=== PATIENT | male | born 1990 | race Caucasian/White ===

== ENCOUNTER 2020-08-07 12:40 | Outpatient (REF) | payer OTHER, SELFPAY | END 2020-08-07 12:41 | disposition home or self-care (01) | LOC: HO.HMGCLDS 12:40 | PROVIDERS: PCP Nurse Practitioner Family; Visit Provider Internal Medicine | DX: Z20.828 Contact with and (suspected) exposure to other viral communicable diseases (principal) | CPT/HCPCS: 36415; 87635 ==

== ENCOUNTER 2021-08-04 08:28 | Outpatient (REF) | payer OTHER, SELFPAY ==
--- NOTE | ~2021-08-04 | XR_ITS ---
EXAMINATION: XR LUMBOSACRAL SPINE CLINICAL INFORMATION: Lower back pain. COMPARISON: None TECHNIQUE: AP and lateral views of the lumbar spine and lateral view of the lumbosacral junction. FINDINGS: Vertebral body heights are normal. There is a slight lumbar levoscoliosis. The disc spaces are well-maintained. No acute fracture or spondylolisthesis seen. The posterior elements are intact. The paravertebral soft tissues are unremarkable. XR/XR lumbar spine 2-3V IMPRESSION: 1. There is a slight lumbar levoscoliosis. 2. No acute fracture or spondylolisthesis is seen. 3. The disc spaces are well-maintained.
== END 2021-08-04 08:29 | disposition home or self-care (01) ==
LOC: HO.HMGCX 08:28
PROVIDERS: PCP Nurse Practitioner Family; Visit Provider Nurse Practitioner Family
DX: M54.5 Low back pain (principal)
CPT/HCPCS: 72100

== ENCOUNTER 2021-08-23 08:19 | Outpatient (REF) | payer OTHER, SELFPAY ==
[2021-08-23 12:00] LABS: Alanine Aminotransferase 39 U/L (0-40); Albumin Level 4.2 g/dL (3.5-5.0); Alkaline Phosphatase 93 U/L (39-117); Anion Gap 13 (12-20); Aspartate Amino Transferase 19 U/L (5-37); Bilirubin Total 1.1 mg/dL (0.0-1.0); Blood Urea Nitrogen 11 mg/dL (9-16); Calcium 9.4 mg/dL (8.4-10.2); Carbon Dioxide 26 mmol/L (22-29); Chloride 106 mmol/L (96-108); Estimated Glomerular Filt Rate > 60; Glucose Random 98 mg/dL (60-115); Sodium 141 mmol/L (135-145); Total Protein 7.2 g/dL (6.5-8.0)
== END 2021-08-23 08:20 | disposition home or self-care (01) ==
LOC: HO.HMGCLDS 08:19
PROVIDERS: PCP Nurse Practitioner Family; Visit Provider Nurse Practitioner Family
DX: I10 Essential (primary) hypertension (principal)
CPT/HCPCS: 36415; 80053

== ENCOUNTER 2022-03-01 10:50 | Outpatient (RCR) | payer OTHER, SELFPAY ==
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
== END 2022-03-28 14:51 | disposition home or self-care (01) ==
LOC: HO.PTCHIC 10:50
PROVIDERS: PCP Nurse Practitioner Family; Visit Provider Nurse Practitioner Family
DX: M54.50 Low back pain, unspecified (principal); M50.90 Cervical disc disorder, unspecified, unspecified cervical region; S13.4XXD Sprain of ligaments of cervical spine, subsequent encounter; V89.2XXD Person injured in unspecified motor-vehicle accident, traffic, subsequent encounter
CPT/HCPCS: 97110; 97161

== ENCOUNTER 2022-03-17 09:06 | Outpatient (REF) | payer OTHER, SELFPAY ==
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
[2022-03-17 11:37] LABS: Appearance Urine CLEAR; Color Urine YELLOW; Glucose Urine UA NEG (NEG); Leukocyte Esterase Urine NEG (NEG); Nitrite Urine NEG (NEG); PH 6.5 (5.0-8.0); UACC Culture Trigger NO; Urine Blood 1+ (NEG); Urine Ketones NEG (NEG); Urine Protein NEG (NEG-TRACE)
[2022-03-17 12:24] LABS: TSH reflex Free T4 1.27 uIU/mL (0.32-4.0)
[2022-03-17 12:30] LABS: Alanine Aminotransferase 45 U/L (0-40); Albumin Level 4.2 g/dL (3.5-5.0); Alkaline Phosphatase 85 U/L (39-117); Anion Gap 12 (12-20); Aspartate Amino Transferase 22 U/L (5-37); Bilirubin Total 1.2 mg/dL (0.0-1.0); Blood Urea Nitrogen 11 mg/dL (9-16); Calcium 9.6 mg/dL (8.4-10.2); Carbon Dioxide 28 mmol/L (22-29); Chloride 104 mmol/L (96-108); Cholesterol 165 mg/dL; Estimated Glomerular Filt Rate > 60; Glucose Fasting 96 mg/dL (60-99); HDL Cholesterol 43 mg/dL; LDL Cholesterol Calculated 100 mg/dl; Potassium 4.3 mmol/L (3.3-5.1); Sodium 140 mmol/L (135-145); Total Protein 7.3 g/dL (6.5-8.0); Triglycerides 111 mg/dL
[2022-03-17 13:28] LABS: Squamous Epithelial Cell Urine TRACE /LPF; WBC Urine 0 /HPF (0-4)
[2022-03-17 13:29] LABS: Bacteria Urine TRACE /LPF
== END 2022-03-17 09:07 | disposition home or self-care (01) ==
LOC: HO.HMGCX 09:06
PROVIDERS: PCP Nurse Practitioner Family; Visit Provider Nurse Practitioner Family
DX: Z00.00 Encounter for general adult medical examination without abnormal findings (principal); M54.50 Low back pain, unspecified; M50.90 Cervical disc disorder, unspecified, unspecified cervical region; R31.29 Other microscopic hematuria; S13.4XXA Sprain of ligaments of cervical spine, initial encounter; V89.2XXA Person injured in unspecified motor-vehicle accident, traffic, initial encounter
CPT/HCPCS: 36415; 72040; 72100; 80053; 80061; 81001; 84443

== ENCOUNTER → 2022-05-11 11:29 | Outpatient (BNVA) | payer OTHER, SELFPAY | PROVIDERS: PCP Nurse Practitioner Family; Visit Provider Dietitian, Registered | DX: E66.01 Morbid (severe) obesity due to excess calories (principal); Z68.41 Body mass index [BMI] 40.0-44.9, adult; Z71.3 Dietary counseling and surveillance | CPT/HCPCS: 97802 ==

== ENCOUNTER → 2022-07-21 10:05 | Outpatient (BNVA) | payer OTHER, SELFPAY | PROVIDERS: PCP Nurse Practitioner Family; Visit Provider Dietitian, Registered | DX: E66.01 Morbid (severe) obesity due to excess calories (principal) | CPT/HCPCS: 97803 ==

== ENCOUNTER → 2022-10-25 09:24 | Outpatient (BNVA) | payer OTHER, SELFPAY | PROVIDERS: PCP Nurse Practitioner Family; Visit Provider Dietitian, Registered | DX: E66.01 Morbid (severe) obesity due to excess calories (principal) | CPT/HCPCS: 97803 ==

== ENCOUNTER 2023-03-09 08:06 | Outpatient (REF) | payer OTHER, SELFPAY ==
[2023-03-09 11:12] LABS: MANUAL DIFF FLAG NO
[2023-03-09 11:26] LABS: Appearance Urine Turbid; Color Urine Yellow; Glucose Urine UA Negative (Negative); Leukocyte Esterase Urine Negative (Negative); Nitrite Urine Negative (Negative); PH 5.5 (5.0-9.0); Specific Gravity - Urine 1.025 (1.005-1.025); UMIC TRIGGER UACC YES; Urine Blood Small (1+) (Negative); Urine Ketones Negative (Negative); Urine Protein Trace mg/dL (Neg-Trace)
[2023-03-09 11:31] LABS: Basophils Percent Auto 0.5 % (0-2); Eosinophils Absolute Auto 0.3 X10*3/uL (0.0-0.4); Eosinophils Percent Auto 3.2 % (0-4); Hemoglobin 15.7 g/dl (14.0-18.0); Imm Gran Abs Auto 0.03 X10*3/uL (0.00-0.03); Imm Gran Pct Auto 0.4 % (0.0-0.4); Lymphocytes Absolute Auto 2.5 X10*3/uL (1.2-4.9); Lymphocytes Percent Auto 31.2 % (20-40); Mean Corpuscular HGB Conc 32.7 g/dl (31.0-36.0); Mean Corpuscular Hemoglobin 27.2 pg (27.0-33.0); Mean Corpuscular Volume 83.2 fL (80.0-98.0); Mean Platelet Volume 11.1 fL (9.4-12.4); Monocytes Absolute Auto 0.7 X10*3/uL (0.1-1.2); Monocytes Percent Auto 8.1 % (2-11); Neutrophils Absolute Auto 4.6 x10*3/uL (2.0-8.3); Neutrophils Percent Auto 56.6 % (45-73); Platelet Count 273 X10*3/uL (160-400); Red Blood Count 5.77 X10*6/uL (4.60-5.80); Red Cell Distribution Width 13.2 % (11.0-16.0); White Blood Count 8.1 X10*3/uL (4.8-10.8)
[2023-03-09 11:43] LABS: Bacteria Urine None Seen (None Seen); Hyaline Casts Urine 0-2 /LPF (0-2); RBC Urine 0-2 /HPF (0-2); Squamous Epithelial Cell Urine 0-2 /HPF (0-2); WBC Urine 0-5 /HPF (0-5)
[2023-03-09 12:41] LABS: Alanine Aminotransferase 46 U/L (0-40); Albumin Level 4.3 g/dL (3.5-5.0); Alkaline Phosphatase 88 U/L (39-117); Anion Gap 13 (12-20); Aspartate Amino Transferase 21 U/L (5-37); Bilirubin Total 1.6 mg/dL (0.0-1.0); Blood Urea Nitrogen 14 mg/dL (9-16); Calcium 9.4 mg/dL (8.4-10.2); Carbon Dioxide 25 mmol/L (22-29); Chloride 106 mmol/L (96-108); Cholesterol 155 mg/dL; Estimated Glomerular Filt Rate > 60; Glucose Fasting 91 mg/dL (60-99); HDL Cholesterol 40 mg/dL; LDL Cholesterol Calculated 94 mg/dl; Potassium 3.9 mmol/L (3.3-5.1); Sodium 140 mmol/L (135-145); Total Protein 7.5 g/dL (6.5-8.0); Triglycerides 106 mg/dL
[2023-03-09 12:48] LABS: TSH reflex Free T4 1.46 uIU/mL (0.32-4.0)
== END 2023-03-09 08:07 | disposition home or self-care (01) ==
LOC: HO.HMGCLDS 08:06
PROVIDERS: PCP Nurse Practitioner Family; Visit Provider Nurse Practitioner Family
DX: I10 Essential (primary) hypertension (principal)
CPT/HCPCS: 36415; 80053; 80061; 81001; 84443; 85025

== ENCOUNTER 2023-03-16 09:02 | Outpatient (REF) | payer OTHER, SELFPAY ==
--- NOTE | ~2023-03-16 | US_ITS ---
EXAMINATION: US ABDOMEN COMPLETE CLINICAL INFORMATION: Elevated liver enzymes. COMPARISON: Renal ultrasound with bladder dated 07/20/2020. CT abdomen and pelvis with intravenous contrast only dated 07/07/2016. TECHNIQUE: Real-time imaging of the abdominal viscera. Technically difficult study secondary to bowel gas and body habitus. FINDINGS: PANCREAS: Not well visualized due to bowel gas. ABDOMINAL AORTA: The proximal, mid, and distal segments are normal in caliber. INFERIOR VENA CAVA: Visualized portions are normal. LIVER: Liver echotexture is increased. The liver is normal in size. The liver contour is normal. No focal hepatic lesion. There is no intrahepatic biliary duct dilatation seen. GALLBLADDER: Normal. The gallbladder is physiologically distended without evidence of stones, sludge, polyps, wall thickening or pericholecystic fluid. COMMON BILE DUCT: Normal in caliber measuring 0.37 cm in diameter. RIGHT KIDNEY: Normal. No hydronephrosis. No renal calculi or focal parenchymal lesions. The kidney measures 13.0 cm in maximum dimension. LEFT KIDNEY: Normal. No hydronephrosis. No renal calculi or focal parenchymal lesions. The kidney measures 13.0 cm in maximum dimension. SPLEEN: Normal. The spleen measures 13.0 cm in maximum dimension. FREE FLUID: None. US/US abdomen complete IMPRESSION: Echogenic liver probably representing fatty infiltration. Limited visualization of the pancreas.
== END 2023-03-16 09:03 | disposition home or self-care (01) ==
LOC: HO.HMGCX 09:02
PROVIDERS: PCP Nurse Practitioner Family; Visit Provider Nurse Practitioner Family
DX: R74.8 Abnormal levels of other serum enzymes (principal)
CPT/HCPCS: 76700

== ENCOUNTER 2024-01-08 08:55 | Emergency (ER) | payer OTHER, SELFPAY ==
--- NOTE | ~2024-01-08 | CT_ITS ---
EXAMINATION: CT ABDOMEN AND PELVIS WITH CONTRAST CLINICAL INFORMATION: Right lower quadrant/periumbilical pain. COMPARISON: Abdominal ultrasound 03/16/2023 CT abdomen/pelvis 10/06/2016 TECHNIQUE: Multidetector volumetric images were obtained from the superior aspect of the liver through the pubic symphysis following administration 85 mL of Omnipaque 350 intravenous contrast. Sagittal and coronal reformatted images were obtained on the technologist's workstation. Oral contrast: No This CT examination was performed using dose optimization techniques as appropriate, variously including the following: *Automated exposure control *Adjustment of mA and/or kV according to patient size (this includes techniques or standardized protocols for targeted exams where dose is matched to indication/reason for exam; i.e. extremities or head) *Use of iterative reconstruction technique DLP: 1349 mGy-cm FINDINGS: LUNG BASES: The visualized lung bases are unremarkable. LIVER, GALLBLADDER, AND BILIARY TREE: The liver is enlarged and decreased in attenuation. No biliary ductal dilatation is present. The gallbladder is unremarkable with no evidence of radiopaque gallstones, gallbladder wall thickening, or obvious pericholecystic inflammatory changes. PANCREAS: No ductal dilatation. SPLEEN: Not enlarged. ADRENAL GLANDS: No adrenal mass. KIDNEYS AND URETERS: The kidneys are symmetric in size, shape, and attenuation. 7 mm midpole left renal cyst for which no further follow-up is needed. No hydronephrosis. No perinephric stranding. BLADDER: Unremarkable. GASTROINTESTINAL TRACT: Small hiatal hernia. Pericolonic inflammatory change in the left lower quadrant with evidence of underlying diverticulosis. No small bowel obstruction. Appendix is within normal limits. ABDOMINAL WALL: No significant hernia is appreciated. LYMPH NODES: No bulky lymphadenopathy. VASCULAR: Normal caliber abdominal aorta. PELVIC VISCERA: Unremarkable. OSSEOUS STRUCTURES: No destructive bone lesions. CT/CT abdomen pelvis w IV con IMPRESSION: Acute diverticulitis of the sigmoid colon. Follow-up imaging after treatment is advised. Hepatomegaly and hepatic steatosis.
[2024-01-08 09:30] VITALS: BP 127/88; PULSE 72; RESP 19; TEMP 36.6; O2SAT 99; BMI 45.4
[2024-01-08 09:48] LABS: MANUAL DIFF FLAG NO
[2024-01-08 09:51] LABS: Basophils Percent Auto 0.5 % (0-2); Eosinophils Absolute Auto 0.1 X10*3/uL (0.0-0.4); Eosinophils Percent Auto 1.5 % (0-4); Hematocrit 45.7 % (42.0-52.0); Hemoglobin 15.1 g/dl (14.0-18.0); Imm Gran Abs Auto 0.02 X10*3/uL (0.00-0.03); Imm Gran Pct Auto 0.2 % (0.0-0.4); Lymphocytes Absolute Auto 1.9 X10*3/uL (1.2-4.9); Lymphocytes Percent Auto 22.9 % (20-40); Mean Corpuscular Hemoglobin 27.3 pg (27.0-33.0); Mean Corpuscular Volume 82.5 fL (80.0-98.0); Mean Platelet Volume 9.8 fL (9.4-12.4); Monocytes Absolute Auto 0.6 X10*3/uL (0.1-1.2); Monocytes Percent Auto 7.5 % (2-11); Neutrophils Absolute Auto 5.7 x10*3/uL (2.0-8.3); Neutrophils Percent Auto 67.4 % (45-73); Platelet Count 236 X10*3/uL (160-400); Red Blood Count 5.54 X10*6/uL (4.60-5.80); White Blood Count 8.4 X10*3/uL (4.8-10.8)
[2024-01-08 10:07] LABS: Alanine Aminotransferase 36 U/L (0-40); Alkaline Phosphatase 92 U/L (39-117); Anion Gap 7 (12-20); Aspartate Amino Transferase 21 U/L (5-37); Bilirubin Direct 0.4 mg/dL (0.0-0.5); Bilirubin Total 1.2 mg/dL (0.0-1.0); Blood Urea Nitrogen 8 mg/dL (9-16); Calcium 9.2 mg/dL (8.4-10.2); Carbon Dioxide 30 mmol/L (22-29); Chloride 107 mmol/L (96-108); Creatinine Clr Calc Pharmacy 210.7; Estimated Glomerular Filt Rate > 60; Glucose Random 98 mg/dL (60-115); Lipase 40 U/L (8-78); Sodium 140 mmol/L (135-145); Total Protein 7.3 g/dL (6.5-8.0)
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
[2024-01-08 11:08] VITALS: BP 139/88; PULSE 68; RESP 20; O2SAT 99
[2024-01-08] MEDS: 0.9 % Sodium Chloride 1,000 ML 999 ML IV (11:53)
[2024-01-08] MEDS: iohexoL 350 MG/ML 100 ML INFUS..BTL 85 ML IV (12:02)
[2024-01-08] MEDS: ondansetron HCL 4 MG/2 ML VIAL IVPUSH (12:18)
[2024-01-08] MEDS: Morphine Sulfate 2 MG/ML CARTRIDGE IVPUSH (12:18)
[2024-01-08 12:26] LABS: Appearance Urine Clear; Color Urine Yellow; Glucose Urine UA Negative (Negative); Leukocyte Esterase Urine Negative (Negative); Nitrite Urine Negative (Negative); Specific Gravity - Urine >= 1.030 (1.005-1.025); Urine Blood Negative (Negative); Urine Ketones Negative (Negative); Urine Protein Trace mg/dL (Neg-Trace)
[2024-01-08] MEDS: Amoxicillin/Potassium Clav 875 MG TABLET PO (14:22)
[2024-01-08 15:14] VITALS: RESP 15
== END 2024-01-08 15:30 | disposition home or self-care (01) ==
PROVIDERS: Emergency Provider Emergency Medicine; PCP Nurse Practitioner Family
DX: K57.32 Diverticulitis of large intestine without perforation or abscess without bleeding (principal); K76.0 Fatty (change of) liver, not elsewhere classified; I10 Essential (primary) hypertension; Z88.0 Allergy status to penicillin
CPT/HCPCS: 36415; 74177; 80048; 80076; 81003; 83690; 85025; 96361; 96374; 96375; 99284; J2270; J2405; Q9967

== ENCOUNTER 2024-01-25 15:00 | Outpatient (AMB) | payer OTHER, SELFPAY ==
[2024-01-25 15:01] VITALS: BP 138/82; PULSE 88; O2SAT 97; BMI 46.1
--- NOTE | 2024-01-25 15:01 | MHC.PC.OV ---
Vital Signs 01/25/24 15:01 Height 6 ft Weight 340 lb BMI 46.1 BP 138/82 Blood Pressure Location Lt brachial Position Sitting Pulse 88 Pulse Source Pulse Oximeter Pulse Oximetry (%) 97 Intake Visit Reasons: Follow up Diverticulitis Intake Note: pt is here for follow up on diverticulitis Hearing Consultant Required: No Accompanied by: Self / Same As Patient Allergies penicillin V Allergy (Unknown, Verified 01/25/24 17:36) Unknown Penicillins [PENICILLINS] Allergy (Unknown, Verified 01/25/24 17:36) UNKNOWN Medication List - Last Reconciled 01/25/24 by DEVIN Quiroz No Known Home Meds Tobacco use date assessed: 01/25/24 Dental Screening Dental Screen Date: 01/25/24 Did you have a dental visit in the last 12 months?: No Did you have a dental problem in the last 6 months where you did not have access to dental care?: No Was dental information given to patient?: Yes HPI Follow up Diverticulitis HPI Details Pt was seen in the ER on 3/ c/o abdominal pain. CBC was WNL. Chemistry without acute electrolyte abnormality, chronically elevated total bilirubin, liver enzymes WNL. Lipase was WNL. UA was negative for infection or blood. CT of the abdomen/pelvis showed acute diverticulitis of the sigmoid colon along with incidental findings of hepatomegaly and hepatic steatosis. Pt was given 1 dose of augmentin in the ER to test for reaction due to possible allergy, pt tolerated well. He was d/c with augmentin, zofran, and morphine. Today, pt reports doing well. He has been referred to GI. Repeat CT has been ordered. Will order labs. Denies fever, chills, constipation, and N/V/D. Educated pt on proper diet including more fruits, vegetables, and fibeous foods. Pt would like to see a dining room cashier. Will refer. COUNTS INCLUDE 234 BEDS AT THE [facility] Medical History Anxiety Lower back pain Surgical History No pertinent past surgical history Social History Housing: Apartment Alcohol intake: never Patient Tobacco Use Status: Never used Tobacco e-Cigarette/Vaping Use: Never Used Second Hand Smoke Exposure: Yes service: No Current occupational status: student Current occupational exposures/hazards: No Cognitive needs: No Hearing needs: No Vision needs: Yes Questionnaire Thrive Questionnaire Date Thrive assessed: 03/09/23 JOSE-7 AMB Questionnaire JOSE-7 Date JOSE - 7 assessed: 03/09/23 Source: Developed by Drs. Gerry Lawrence, Darcy Waggoner, Ranjeet Blair and colleagues, with an educational gabe from [employer]. Review of Systems Const Reports as per HPI Physical exam (Primary Care) Vital Signs: Last Vital Signs Pulse 88 01/25/24 15:01 BP 138/82 01/25/24 15:01 Pulse Ox 97 01/25/24 15:01 BMI result Body Mass Index 46.1 Tobacco/Smoking Status: Tobacco use Status Tobacco use date assessed 01/25/24 01/25/24 15:03 Patient Tobacco Use Status Never used Tobacco 01/25/24 15:03 e-Cigarette/Vaping Use Never Used 01/25/24 15:03 Thrive Assessment: Date of Thrive Assessment Date Thrive assessed 03/09/23 01/25/24 15:03 Const General: cooperative Nutritional Appearance: obese morbidly obese Orientation/consciousness: patient oriented x3 Resp Effort & Inspection: normal respiratory effort Auscultation: clear to auscultation bilaterally Cardio Rate: regular rate Rhythm: regular rhythm Heart sounds: S1 normal heart sound present and S2 normal heart sound present GI Palpation (GI): nontender Neuro General: patient oriented x3 Psych Appearance: grossly normal Mental Status: mental status grossly normal Speech and movement: Normal speech and movement present Affect: normal affect Attitude: cooperative Thought process: Normal thought process present Thought content: Normal thought content present Insight: Good insight present (Psych) Judgement: Good judgement present (Psych) Assessment and Plan Assessment & Plan (1) Diverticulitis: Code(s): K57.92 - Diverticulitis of intestine, part unspecified, without perforation or abscess without bleeding Plan: Labs ordered (2) Poor nutrition: Code(s): E63.9 - Nutritional deficiency, unspecified Plan The patient agreed to the use of a medical administrative assistant for this encounter. Scribed for DEVIN Liu by Clementine Rivera medical administrative assistant, on 01/25/2024 at 15:15 EST. Orders: Orders Lipid Panel Today K57.92 - Diverticulitis of intestine, part unspecified, without perforation or abscess without bleeding Complete Blood Count Auto Diff Today K57.92 - Diverticulitis of intestine, part unspecified, without perforation or abscess without bleeding Comprehensive [place]. Panel Fast Today K57.92 - Diverticulitis of intestine, part unspecified, without perforation or abscess without bleeding TSH reflex Free T4 Today K57.92 - Diverticulitis of intestine, part unspecified, without perforation or abscess without bleeding UA CC w/rflx Micro + Cult Today K57.92 - Diverticulitis of intestine, part unspecified, without perforation or abscess without bleeding Referrals Nutrition/Dietitian Referral E63.9 - Nutritional deficiency, unspecified Coding Level of Care Code Est Pt Level 3 (37584) Diagnoses Diverticulitis K57.92 Poor nutrition E63.9
== END 2024-01-25 16:54 | disposition home or self-care (01) ==
PROVIDERS: PCP Nurse Practitioner Family; Visit Provider Nurse Practitioner Family
DX: K57.92 Diverticulitis of intestine, part unspecified, without perforation or abscess without bleeding (principal); E63.9 Nutritional deficiency, unspecified
CPT/HCPCS: 99213

== ENCOUNTER 2024-03-21 08:52 | Outpatient (AMB) | payer OTHER, SELFPAY ==
[2024-03-21 09:11] VITALS: BMI 46.1
--- NOTE | 2024-03-21 09:11 | MHC.AMNUTRGE ---
VS Expanded 03/21/24 09:11 04/02/24 11:22 Height 6 ft 6 ft Weight 339 lb 11.717 oz 340 lb BMI 46.1 46.1 Intake Visit Reasons: Obesity, Nutritional Deficiency Allergies penicillin V Allergy (Unknown, Verified 01/25/24 17:36) Unknown Penicillins [PENICILLINS] Allergy (Unknown, Verified 01/25/24 17:36) UNKNOWN Nutrition Presentation Details: Pt presents for MNT for nutritional deficiencies with morbid obesity. 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 chicken over rice 5 -6 pm : spaghetti and meat balls (sausage) or rice/beans/chicken, water email correction [email or web address] Pt reports keeping physically active : 3-4 times a week, 30 min cardio (treadmill) and light weight BS Monitoring Most Recent Diabetes Results: Cholesterol 155 mg/dL 03/09/23 HDL Cholesterol 40 mg/dL 03/09/23 Triglycerides 106 mg/dL 03/09/23 Creatinine 0.75 mg/dL (0.5-1.4) 01/08/24 Blood Urea Nitrogen 8 mg/dL (9-16) L 01/08/24 Sodium 140 mmol/L (135-145) 01/08/24 Potassium 4.0 mmol/L (3.3-5.1) 01/08/24 Chloride 107 mmol/L (96-108) 01/08/24 Carbon Dioxide 30 mmol/L (22-29) H 01/08/24 Calcium 9.2 mg/dL (8.4-10.2) 01/08/24 AST 21 U/L (5-37) 01/08/24 ALT 36 U/L (0-40) 01/08/24 Total Protein 7.3 g/dL (6.5-8.0) 01/08/24 Albumin 4.0 g/dL (3.5-5.0) 01/08/24 MBI-Noufwzc-Cy.Jeor Equation Height: 6 ft Weight: 340 lb Resting Metabolic Rate: 2521.39 Calculated Activity Level: Mild Activity Calories Needed to Maintain Weight: 3466.91 Diagnosis Nutrition problem #1: food nutri know defi As related to (etiology) #1: diagnosis As evidenced by (sign/symptom) #1: knowledge deficit of diet Monitoring/Goals Nutrition problem monitoring: level of knowledge/skill and weight Learning/Education Readiness to learn: good [facility] Medical History Anxiety Lower back pain Surgical History (Reviewed 01/25/24 @ 17:35 by Bo Trinidad [facility]) No pertinent past surgical history Social History Housing: Apartment Alcohol intake: never Patient Tobacco Use Status: Never used Tobacco e-Cigarette/Vaping Use: Never Used Second Hand Smoke Exposure: Yes service: No Current occupational status: student Current occupational exposures/hazards: No Cognitive needs: No Hearing needs: No Vision needs: Yes Assessment & Plan Assessment & Plan (1) Poor nutrition: Comment: RECOMMEND monitoring labs for Vit D, B, Zinc . thank you Code(s): E63.9 - Nutritional deficiency, unspecified Category: Medical Plan: Wt: 154 Kg ( 03/2024 ) Est kcal needs as per MSJ: 3400- 500 = 2900 (40% carb, 30% protein/fat) Est fluid needs as per 25-30 ml/d: 4600 Est prot per day as per 1 g/kg bw: 154 Recommend fiber intake : 8-10 g per day and gradually increase to 25-28 g per day for women and 35-38 g for men or as tolerated Recommend sodium intake per day : less than 1500 mg less than 2000 mg Educated patient on: ( R = reviewed V = verbalizes understanding N/R = needs review N/A = not applicable Food sources of carbohydrate, adequate serving sizes and its role in various health conditions: R Differences between complex carbohydrates a simple carbohydrates, role of fiber in diet: R V N/R Lean protein sources of foods: R Differences between types of fats and role in diet (mono on saturated fat fatty acids, saturated fatty acids, trans fats): R V N/R Food sources of sodium in salt and healthy modifications for heart health in kidney health: R V R/V Vitamins and minerals: R V N/R Healthy plate method concept: R Physical activity: Benefits a precaution: R V N/R Patient Instructions: Work on mindful eating Choose low sugar beverages Work on following healthy plate method at dinner Coding Level of Care Code Nutr Indiv Intake (17550) Diagnoses Poor nutrition E63.9 Time Spent (min) 30
[2024-04-02 11:22] VITALS: BMI 46.1
== END 2024-03-21 09:43 | disposition home or self-care (01) ==
PROVIDERS: PCP Nurse Practitioner Family; Visit Provider Dietitian, Registered
DX: E63.9 Nutritional deficiency, unspecified (principal)

== ENCOUNTER → 2024-03-21 08:52 | Outpatient (BNVA) | payer OTHER, SELFPAY | PROVIDERS: PCP Nurse Practitioner Family; Visit Provider Dietitian, Registered | DX: E63.9 Nutritional deficiency, unspecified (principal) | CPT/HCPCS: 97802 ==

== ENCOUNTER 2024-08-01 13:37 | Outpatient (AMB) | payer OTHER, SELFPAY ==
[2024-08-01 13:40] VITALS: BP 144/86; PULSE 98; O2SAT 98; BMI 46.4
--- NOTE | 2024-08-01 13:40 | A.OFFPC_ITS ---
Vital Signs 08/01/24 13:40 Height 6 ft Weight 342 lb BMI 46.4 BP 144/86 H Blood Pressure Location Lt brachial Position Sitting Pulse 98 Pulse Source Pulse Oximeter Pulse Oximetry (%) 98 Oxygen Delivery Method Room Air Intake Visit Reasons: PE Intake Note: Pt is here today for his annual physical. Allergies penicillin V Allergy (Unknown, Verified 08/01/24 13:40) Unknown Penicillins [PENICILLINS] Allergy (Unknown, Verified 08/01/24 13:40) UNKNOWN Medication List - Last Reconciled 08/01/24 by DEVIN Quiroz No Known Home Meds Tobacco use date assessed: 08/01/24 Dental Screening Dental Screen Date: 08/01/24 Did you have a dental visit in the last 12 months?: Yes Did you have a dental problem in the last 6 months where you did not have access to dental care?: No Was dental information given to patient?: Patient has dentist HPI PE HPI Details Pt is here for a PE. Will order labs. Pt's blood pressure is elevated today. He reports being on medication previously but ran out. Will send irbesartan 75mg. Pt c/o increased fatigue. He reports that he does snore. Will refer for sleep study. Pt reports dermatitis to his bilat feet. Will refer to podiatry. [facility] Medical History Anxiety Lower back pain Surgical History No pertinent past surgical history Social History Housing: Apartment Alcohol intake: never Patient Tobacco Use Status: Never used Tobacco e-Cigarette/Vaping Use: Never Used Second Hand Smoke Exposure: Yes service: No Current occupational status: student Current occupational exposures/hazards: No Cognitive needs: No Hearing needs: No Vision needs: Yes Questionnaire PHQ-9 Over the last 2 weeks, how often have you been bothered by any of the following problems? 1. Little interest or pleasure in doing things: more than half the days 2. Feeling down, depressed, or hopeless: not at all 3. Trouble falling or staying asleep, or sleeping too much: several days 4. Feeling tired or having little energy: several days 5. Poor appetite or overeating: not at all 6. Feeling bad about yourself - or that you are a failure or have let yourself or your family down: not at all 7. Trouble concentrating on things, such as reading the newspaper or watching television: not at all 8. Moving or speaking so slowly that other people could have noticed. Or the opposite - being so fidgety or restless that you have been moving around a lot more than usual: not at all 9. Thoughts that you would be better off or of hurting yourself in some way: not at all Total score: 4 Depression Screening Interpretation: Negative Depression Screening Done: Yes 58624 - PHQ-9 Billing: Yes Source: Developed by Drs. Gerry Lawrence, Darcy Waggoner, Ranjeet Blair and colleagues, with an educational gabe from [employer]. Thrive Questionnaire Date Thrive assessed: 08/01/24 I am a: Patient What is your living situation today?: I have a steady place to live Within the past 12 months, did the food you bought not last and you didn't have the money to get more?: Never true Within the past 12 months, did you worry whether your food would run out before you got money to buy more?: Never true Do you have trouble paying for medicines?: No Do you have trouble getting transportation to medical appointments?: No Do you have trouble paying your heating and electricity bill?: No Do you have trouble taking care of your child, family member or friend?: No Do you have trouble with day-to-day activities such as bathing, preparing meals, shopping, managing finances, etc.?: No Are you currently unemployed and looking for a job?: No Are you interested in more education?: Yes Please select the resources that you would like help with: None Currently or been in a relationship where the following occur: No concerns reported THRIVE Score: 0 AUDIT C Alcohol Use Questionnaire (AUDIT-C) 1. How often do you have a drink containing alcohol?: Monthly or less 2. How many drinks containing alcohol do you have on a typical day when you are drinking?: 1 or 2 3. How often do you have six or more drinks on one occasion?: Less than monthly Total Score: 2 Score Reviewed/Action Taken: Yes JOSE-7 AMB Questionnaire JOSE-7 Date JOSE - 7 assessed: 08/01/24 Feeling nervous, anxious, or on edge: 0 = Not at all Not being able to stop or control worryin = Not at all Worrying too much about different things: 0 = Not at all Trouble relaxin = Several days Being so restless that it is hard to sit still: 1 = Several days Becoming easily annoyed or irritable: 0 = Not at all Feeling afraid as if something awful might happen: 0 = Not at all Total JOSE-7 score (0-4 normal; 5-9 mild; 10-14 moderate; 15-21 severe): 2 Source: Developed by Drs. Gerry Lawrence, Darcy Waggoner, Ranjeet Blair and colleagues, with an educational gabe from [employer]. JOSE-7 Assessment Billing JOSE-7 Assessment Tool: JOSE-7 Assessment 78104 Review of Systems Const Denies chills and Denies fever(s) Eyes Denies blurry vision ENT Denies vertigo, Denies dizziness and Denies sore throat Card Denies chest pain at rest, Denies chest pain with activity, Denies diaphoresis, Denies dyspnea and Denies dyspnea on exertion Resp Denies cough, Denies dyspnea, Denies dyspnea on exertion and Denies wheezing GI Denies abdominal pain, Denies melena, Denies hematochezia, Denies constipation, Denies diarrhea and Denies loose stools Denies hematuria Musc Denies numbness and Denies tingling Skin/Breast Denies lesions Neuro Denies vertigo, Denies dizziness, Denies numbness and Denies tingling Psych Denies anxiety, Denies depression, Denies homicidal ideation, Denies suicidal ideation and Denies other (substance abuse) Aller/Immun Denies wheezing Physical exam (Primary Care) Vital Signs: Last Vital Signs Pulse 98 08/01/24 13:40 BP 144/86 H 08/01/24 13:40 Pulse Ox 98 08/01/24 13:40 Oxygen Delivery Method Room Air 08/01/24 13:40 BMI result Body Mass Index 46.4 Tobacco/Smoking Status: Tobacco use Status Tobacco use date assessed 08/01/24 08/01/24 13:41 Patient Tobacco Use Status Never used Tobacco 08/01/24 13:41 e-Cigarette/Vaping Use Never Used 08/01/24 13:41 PHQ-9: PHQ-9 Score PHQ-9: Total score 4 08/01/24 13:50 Depression Screening Interpretation: Negative Thrive Assessment: Date of Thrive Assessment Date Thrive assessed 08/01/24 08/01/24 13:41 Currently or been in a relationship where the following occur: No concerns reported Const General: cooperative Nutritional Appearance: obese morbidly obese Orientation/consciousness: patient oriented x3 HENMT Head: Yes normal to inspection, Yes normocephalic and Yes atraumatic Ears: TM's normal bilaterally Eyes General: appearance normal, both eyes and all related structures Alignment and Position: alignment normal and position normal Neck Neck: Yes normal visual inspection, Yes no lymphadenopathy and Yes supple Resp Effort & Inspection: normal respiratory effort Auscultation: clear to auscultation bilaterally Cardio Rate: regular rate Rhythm: regular rhythm Heart sounds: S1 normal heart sound present, S2 normal heart sound present and no murmurs GI Palpation (GI): Soft to palpation and nontender Auscultation: normal bowel sounds Male General Exam: Yes normal external exam Penis: normal penis Scrotum: scrotum normal, testes descended bilaterally and no inguinal hernias Testes: no testicular mass Skin Other: medial feet with dermatitis patches, silvery color, dry L>R Neuro General: patient oriented x3, moves all extremities, no focal motor deficits and deep tendon reflexes 2+ bilaterally Romberg Test: Negative Psych Appearance: grossly normal Mental Status: mental status grossly normal Speech and movement: Normal speech and movement present Affect: normal affect Attitude: cooperative Thought process: Normal thought process present Thought content: Normal thought content present Insight: Good insight present (Psych) Judgement: Good judgement present (Psych) Assessment and Plan Assessment & Plan (1) Morbid obesity: Code(s): E66.01 - Morbid (severe) obesity due to excess calories Plan: pt going to the gym, working on his diet (2) Snores: Code(s): R06.83 - Snoring (3) Fatigue: Code(s): R53.83 - Other fatigue Plan: referred to sleep medicine, labs ordered (4) Foot dermatitis: Code(s): L30.9 - Dermatitis, unspecified Plan: referred to podiatry (5) HTN (hypertension): Code(s): I10 - Essential (primary) hypertension Plan: restarted irbesartan, pt will send BPs via the portal in the near future Orders: Referrals Sleep Medicine Referral E66.01 - Morbid (severe) obesity due to excess calories, R06.83 - Snoring, R53.83 - Other fatigue Podiatry Referral L30.9 - Dermatitis, unspecified Medications: New irbesartan 75 mg PO DAILY 90 tabs 0RF 90 days Coding Level of Care Code Est Pt Prev Care 18-39y(46929) Diagnoses Morbid obesity E66.01 Snores R06.83 Fatigue R53.83 Foot dermatitis L30.9 HTN (hypertension) I10 Additional Codes JOSE-7 Assessment Billing - JOSE-7 Assessment Tool: JOSE-7 Assessment 43068 ([id number])
== END 2024-08-01 14:13 | disposition home or self-care (01) ==
PROVIDERS: PCP Nurse Practitioner Family; Visit Provider Nurse Practitioner Family
DX: Z00.00 Encounter for general adult medical examination without abnormal findings (principal); E66.01 Morbid (severe) obesity due to excess calories; Z68.42 Body mass index [BMI] 45.0-49.9, adult; R06.83 Snoring; R53.83 Other fatigue; L30.9 Dermatitis, unspecified; I10 Essential (primary) hypertension

== ENCOUNTER → 2024-08-01 13:37 | Outpatient (BNVA) | payer OTHER, SELFPAY | PROVIDERS: PCP Nurse Practitioner Family; Visit Provider Nurse Practitioner Family | DX: E66.01 Morbid (severe) obesity due to excess calories (principal); R06.83 Snoring; R53.83 Other fatigue; L30.9 Dermatitis, unspecified; I10 Essential (primary) hypertension | CPT/HCPCS: 96127; 99395 ==